=== PATIENT | female | born 2000 | race Two or more races ===

== ENCOUNTER 2022-03-06 11:13 | Emergency (ER) | payer OTHER ==
[~2022-03-06] VITALS: Ht 160 cm; Wt 64.8 kg
[2022-03-06 11:38] VITALS: BP 119/75
[2022-03-06] MEDS ORDERED: KETOROLAC 60 MG/2 ML VIAL. IM ONE (12:15)
--- NOTE | 2022-03-06 12:35 | RAD ---
XR CERVICAL SPINE 2-3V History: Neck pain at base of skull. No injury. Comparison: None. Technique: 3 views of the cervical spine. Findings: There are 7 non-rib bearing cervical vertebral segments. There is no evidence of fracture. No destructive osseous lesions are seen. Alignment is normal. No significant facet disease. Disc spaces are preserved. Soft tissues are unremarkable. IMPRESSION: 1. Unremarkable cervical spine. Electronically signed by: Efrem Garcia MD (03/06/2022 12:32 PM) [id number]
[2022-03-06] MEDS ORDERED: CYCL5TAB PO (12:39)
[2022-03-06] MEDS ORDERED: NAPR-683 PO (12:40)
--- NOTE | 2022-03-06 12:55 | PHYS DOC ---
Past Medical History Past Surgical History: No Surgical History General Adult EDM: Chief Complaint: NECK PAIN HPI: HPI: Patient is a 21 year old female comes in with a complaint of headache and neck pain that started approximately 2 days ago. Patient denies any numbness or tingling denies any fevers or chills denies any visual changes. Patient states that she frequently gets headaches. Has not taken any medications prior. Review of Systems: Review of Systems: Constitutional: Denies fever or chills. [] Eyes: Denies change in visual acuity. [] HENT: Denies nasal congestion or sore throat. [] Respiratory: Denies cough or shortness of breath. [] Cardiovascular: Denies chest pain or edema. [] GI: Denies abdominal pain, nausea, vomiting, bloody stools or diarrhea. [] : Denies dysuria. [] Musculoskeletal: Denies back pain or joint pain. [] Integument: Denies rash. [] Neurologic: Headache, denies headache, focal weakness or sensory changes. [] Endocrine: Denies polyuria or polydipsia. [] Lymphatic: Denies swollen glands. [] Psychiatric: Denies depression or anxiety. [] Heart Score: C/O Chest Pain: No Risk Factors: Risk Factors: DM, Current or recent (<one month) smoker, HTN, HLP, family history of CAD, obesity. Risk Scores: Score 0 - 3: 2.5% MACE over next 6 weeks - Discharge Home Score 4 - 6: 20.3% MACE over next 6 weeks - Admit for Clinical Observation Score 7 - 10: 72.7% MACE over next 6 weeks - Early Invasive Strategies Current Medications: Current Medications Medications (Trade) Dose Ordered Sig/Katiana Start Time Stop Time Status Last Admin Dose Admin Ketorolac Tromethamine (Toradol Im) 30 mg 1X ONCE 03/06/22 12:15 03/06/22 12:16 DC 03/06/22 12:35 30 MG Lorazepam (Ativan Inj) 1 mg 1X ONCE 03/06/22 12:15 03/06/22 12:16 DC Allergies: Allergies: Allergies Coded Allergies Type Severity Reaction Last Updated Verified No Known Drug Allergies 03/06/22 No Physical Exam: PE: Constitutional: Well developed, well nourished, no acute distress, non-toxic appearance. [] HENT: Normocephalic, atraumatic, bilateral external ears normal, oropharynx mois t, no oral exudates, nose normal. [] Eyes: PERRLA, EOMI, conjunctiva normal, no discharge. [] Neck: Spasms along C5 bilaterally no midline tenderness normal range of motion, supple, no stridor. [] No meningismus Cardiovascular:Heart rate regular rhythm, no murmur [] Lungs & Thorax: Bilateral breath sounds clear to auscultation [] Abdomen: Bowel sounds normal, soft, no tenderness, no masses, no pulsatile masses. [] Skin: Warm, dry, no erythema, no rash. [] Back: No tenderness, no CVA tenderness. [] Extremities: No tenderness, no cyanosis, no clubbing, ROM intact, no edema. [] Neurologic: Alert and oriented X 3, normal motor function, normal sensory function, no focal deficits noted. [] Psychologic: Affect normal, judgement normal, mood normal. [] Current Patient Data: Labs: Laboratory Tests Test 03/06/22 12:10 POC Urine HCG, Qualitative Hcg negative (Negative) Vital Signs: Vital Signs Date Time Temp Pulse Resp B/P (MAP) Pulse Ox O2 Delivery O2 Flow Rate FiO2 03/06/22 11:38 98.3 63 20 119/75 (90) 97 Room Air 98.3 EKG: EKG: [] Radiology/Procedures: Radiology/Procedures: []IMPRESSION: 1. Unremarkable cervical spine. Course & Med Decision Making: Course & Med Decision Making Pertinent Labs and Imaging studies reviewed. (See chart for details) [] Patient appears nontoxic. After taking the medications patient states that she feels much better. Return precautions were discussed mother at bedside questions and concerns were addressed Maykel Disclaimer: Maykel Disclaimer: This electronic medical record was generated, in whole or in part, using a voice recognition dictation system. Departure Departure Impression: Primary Impression: Cervical strain Disposition: HOME / SELF CARE / HOMELESS Patient Instructions: Cervical Strain and Sprain with [facility] Scripts Naproxen (NAPROSYN) 500 Mg Tablet 1 TAB PO BID for pain, #20 TAB Prov: CHARLIE DENNIS DO 03/06/22 Cyclobenzaprine Hcl (CYCLOBENZAPRINE HCL) 5 Mg Tablet 5 MG PO TID for 5 Days, #15 TAB Prov: CHARLIE DENNIS DO 03/06/22 CHARLIE DENNIS DO Mar 06, 2022 12:55
== END 2022-03-06 13:04 | disposition home or self-care (01) ==
LOC: ER 11:13
DX: S16.1XXA Strain of muscle, fascia and tendon at neck level, initial encounter (principal); R51.9 Headache, unspecified; X58.XXXA Exposure to other specified factors, initial encounter; Y93.89 Activity, other specified; Y92.89 Other specified places as the place of occurrence of the external cause; Y99.8 Other external cause status
CPT/HCPCS: 72040; 81025; 96372; 99284; J1885